=== PATIENT | female | born 1995 | race Caucasian/White ===

== ENCOUNTER → 2017-06-10 11:21 | Outpatient (CLI) | payer BC, SELFPAY ==
[2017-06-10 12:47] LABS: hCG Titer Quant., Serum < 1 mIU/mL (<9 non-preg)
== END ==
PROVIDERS: Visit Provider Obstetrics & Gynecology
DX: N91.2 Amenorrhea, unspecified (principal)
CPT/HCPCS: 36415; 84702

== ENCOUNTER → 2017-06-24 18:29 | Outpatient (CLI) | payer BC, SELFPAY ==
--- OUTSIDE RECORDS SUMMARY | 2017-06-24 19:01 | XMS RPT_ITS ---
:1995 Author Organization OHIP Care Team Providers Name Role Phone Dafne Orona Attending Unavailable Dafne Orona Attending Unavailable PROBLEMS PROBLEMS DATE TYPE CONDITION / CODE ATTENDING STATUS SOURCE 06/10/2017 Unknown N91.2 - Dafne Orona Active [facility] N91.2(ICD-10) Repository PROCEDURES PROCEDURES No Procedure Records FoundRESULTS RESULTS HCG TITER QUANT., Collected: 06/10/2017 Status: F Source: ALTMAR SERUM 11:34 AM [facility] [place] TYPE CODE TESTS RESULT OUT OF RANGE REFERENCE UNITS LAB L700.8000 Normal <9 non-preg mIU/mL HCG < 1 QUANT. Performed By: #### L700.8000 ####[facility] [id number] [place], [address] ALLERGIES ALLERGIES No Allergies Records FoundENCOUNTERS ENCOUNTERS ADMIT/DISCHARGE ACCOUNT ADMITTING ENCOUNTER LOCATION SOURCE NUMBER CLASS 06/24/2017 [id number] Ambulatory [facility] 2 [facility] ing:LABSPEC Repository 06/10/2017 [id number] Ambulatory [facility] 9 [facility] ing:WOBLAB Repository PAYERS PAYERS ENCOUNTER GUARANTOR PAYER SUBSCRIBER SOURCE 06/24/2017 Risa [id number] Insurance:[place] ENGINEERSPolic Repository [address]War: (363) Number: [phone] (VQ) [id number] Date:2017-06-24[address] [place] [id number]: 06/24/2017 Secondary NOT GIVENUNK Elaina Insurance:SELF PAY [facility] Number: Effective Repository Date:2017-06-24 06/10/2017 Risa Primary KYLE Delaney [id number] Insurance:[place] [facility] Rep[facility] 10851Mxk: 330) Number: [phone] [id number] Date:2017-06-10[address] [place] [address] [id number]: 06/10/2017 Secondary NOT GIVENUNK [place] Insurance:SELF PAY [facility] Number: Effective Repository Date:2017-06-10
[2017-06-28 10:18] LABS: HPV Reflexed? NOT INDICATED
== END ==
PROVIDERS: Visit Provider Obstetrics & Gynecology
DX: Z12.4 Encounter for screening for malignant neoplasm of cervix (principal)
CPT/HCPCS: 88175; G0145

== ENCOUNTER → 2018-08-04 17:36 | Outpatient (CLI) | payer OTHER, SELFPAY ==
[2018-08-10 16:45] LABS: HPV Reflexed? NOT INDICATED
== END ==
PROVIDERS: Referring Provider Obstetrics & Gynecology; Visit Provider Obstetrics & Gynecology
DX: Z12.4 Encounter for screening for malignant neoplasm of cervix (principal)
CPT/HCPCS: 88175; G0145

== ENCOUNTER → 2022-12-11 | Outpatient (CLI) | payer OTHER, SELFPAY ==
[2022-12-17 16:55] LABS: HPV Reflexed? NOT INDICATED
== END | disposition home or self-care (01) ==
PROVIDERS: Referring Provider Obstetrics & Gynecology; Visit Provider Obstetrics & Gynecology
DX: Z12.4 Encounter for screening for malignant neoplasm of cervix (principal)
CPT/HCPCS: 88175; G0145

== ENCOUNTER → 2024-01-04 | Outpatient (CLI) | payer OTHER, SELFPAY ==
--- NOTE | 2024-01-04 16:31 | US_ITS ---
STUDY: ULTRASOUND OF THE FEMALE PELVIS - COMPLETE REASON FOR EXAM: Female, 28 years old. dysmenorrhea LMP: 12/21/2023 TECHNIQUE: Transabdominal and Transvaginal TECHNICAL QUALITY: Adequate. COMPARISON: None. FINDINGS: The uterus is anteverted and is in a midline position. The uterus measures 9.5 x 5.6 x 3.60 cm. There is a Nabothian cyst of the cervix. The endometrium measures 15 mm in thickness, and is hyperechoic. Cannot exclude an 8 mm endometrial polyp. There is no demonstrated myometrial mass. I.U.D. - The patient does not have an I.U.D. The right ovary is visualized. The right ovary measures 4.7 x 3.1 x 2.4 cm. There is a 1.5 cm cyst. There is no visualized right adnexal mass or complex lesion. There is normal arterial and normal venous vascularity. The left ovary is visualized. The left ovary measures 3.3 x 3.0 x 2.5 cm. There is a 1.9 cm cyst. There is no visualized left adnexal mass or complex lesion. There is normal arterial and normal venous vascularity. There is no fluid in the cul-de-sac. The pre void volume of the bladder was 135 ml. Polycystic ovary disease: No. US/Pelvic w/ Transvaginal IMPRESSION: Thickened and abnormal endometrial echoes. Cannot exclude endometrial polyp. Electronically Signed: Poli Arteaga MD at 20:18 EDT ,
== END | disposition home or self-care (01) ==
LOC: US 16:30
PROVIDERS: Referring Provider Obstetrics & Gynecology; Visit Provider Obstetrics & Gynecology
DX: N94.6 Dysmenorrhea, unspecified (principal)
CPT/HCPCS: 76830; 76856

== ENCOUNTER → 2024-01-12 | Outpatient (CLI) | payer OTHER, SELFPAY | END | disposition home or self-care (01) | LOC: WOBLAB 15:57 | PROVIDERS: Referring Provider Obstetrics & Gynecology; Visit Provider Obstetrics & Gynecology | DX: N94.6 Dysmenorrhea, unspecified (principal) | CPT/HCPCS: 84443 ==

== ENCOUNTER → 2024-01-20 | Outpatient (CLI) | payer OTHER, SELFPAY ==
--- NOTE | 2024-01-20 11:49 | RAD_ITS ---
INDICATION: infertility EXAMINATION/TECHNIQUE: Routine hysterosalpingography was performed. Total Fluoroscopic Time: 39 seconds AND number of Fluoroscopic Images: 2 Radiation dosage index: 11.88 mGy. COMPARISON: No relevant prior comparison study available FINDINGS: The uterine cavity contour is unremarkable. There are no filling defects or abnormalities. There is filling of the left fallopian tube with free flow. There is faint opacification of the right fallopian tube although no evidence of. RAD/Salpingogram IMPRESSION: Patency with spill of the left fallopian tube. Electronically Signed: Marcelo Collier MD at 12:50 EDT ,
--- NOTE | 2024-01-20 16:55 | PCM.OP.PRO2 ---
Problems Associated Problem List Diagnoses (1) Infertility: Non-invasive Procedure Procedure Information Procedure Performed:: hysterosalpingogram Surgeon/Practitioner: Kristyn Gustafson Date of Procedure: 01/20/24 Pre-Procedure Diagnosis: infertility Post-Procedure Diagnosis: infertility Special Medications: none Fluids Replaced: non Description of procedure: Preop diagnosis: Infertility Operative details: Patient was taken to the x-ray room and was placed on the x-ray table and was in the dorsal lithotomy position. Speculum was placed in the vagina and the cervix prepped with Betadine and the HSG catheter was easily introduced into the uterus and speculum removed. Radiologist was brought in and while pushing radiopaque dye into the uterus via the HSG catheter the radiologist took multiple images and views and confirmed left tubal patency but not right. No gross uterine filling defects or abnormalities were seen. All instruments removed from the vagina and the uterus without complication. Patient tolerated the procedure well. Procedure findings: abnormal HSG Entertainment Production Professional vegetable farm worker: No Complications Complications: No Multi Select Codes Urinary/Genital Urinary/Genital CPT Codes: 31994 HSG/SIS
== END | disposition home or self-care (01) ==
LOC: RAD 11:48
PROVIDERS: Referring Provider Obstetrics & Gynecology; Visit Provider Obstetrics & Gynecology
DX: N97.0 Female infertility associated with anovulation (principal)
CPT/HCPCS: 58340; 74740

== ENCOUNTER 2024-05-10 05:45 | Day surgery (SDC) | payer OTHER, SELFPAY ==
[2024-05-06 14:20] LABS: Hematocrit 42.7 % (37-47); Hemoglobin 14.1 g/dL (12.0-15.0); Mean Corpuscular Hgb 29.1 pg (27.0-32.0); Mean Platelet Vol. 9.7 fl (6.2-12.0); Platelet Count 248 K/mm3 (150-450); RBC Distribution Width CV 11.9 % (11.6-14.6); RBC Distribution Width SD 38.3 fl (35.1-43.9); Red Blood Count 4.85 M/mm3 (4.2-5.4); White Blood Count 8.2 K/mm3 (4.4-11.0)
--- NOTE | 2024-05-09 17:26 | PCM.HP.BLA ---
History and Physical Date of Admission: 05/10/24 ital Signs 03/03/2414:52 05/06/2511:59 Height 5 ft 7 in 5 ft 7 in Weight: 140 lb 134 lb 8 oz BMI 21.9 21.0 BP 126/84 H 129/85 H Intake Visit Reasons: D&C Polypectomy, diag. lap, john Pipe Stem Sawyer Required: No Is patient in pain?: No Feel stressed/tense/nervous/anxious/difficulty sleeping: not at all Allergies No Known Allergies Allergy (Verified 05/06/24 13:01) Medications ?Medication ?Instructions ?Recorded ?Confirmed ?Type NK 09/03/20 05/06/24 History Post menopausal: No Patient : No : No PFSH Medical History Wears contact lenses Non-smoker Surgical History History of wisdom tooth extraction Family History Grandmother CVA (cerebral vascular accident) Heart disease Cancer ovarian or uterine - unsure what it is Social History household members: spouse number of children: 0 current occupational status: employed 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 john clarke Details: RISA ALVAREZ is a 28 year old who presents for infertility and dysmenorrhea. she has significant crmaping with menses, and some heavier menses some months, has bene trying to conceive over a year, has good egg quality and suppply and normal SA. 8 mm polyp seen on US. History 0 Elective abortions Hx Para Spontaneous abortions Hx # Term Pregnancies Ectopic pregnancies Hx # Pregnancies Multiple births # of living children ROS Const Constitutional: Denies fatigue, fever(s), headache(s), increased appetite, poor appetite, weight gain or weight loss GI GI: Reports as per HPI; Denies abdominal pain, constipation, nausea or vomiting : Reports as per HPI; Denies difficulty voiding, dysuria, hematuria, pelvic pain, urinary frequency, urinary incontinence, urinary hesitancy, urinary urgency, vaginal discharge, vaginal dryness, vaginal odor, vaginal pruritus or other Exam Const General: cooperative, healthy appearing, comfortable, no acute distress and well developed Orientation: alert HENMT Head: normal to inspection and normocephalic Ears: hearing grossly normal bilaterally and external ears normal Nose: external nose normal and nares normal Face and sinus: normal facial exam Neck Neck: normal visual inspection, no lymphadenopathy and trachea midline Thyroid: thyroid normal Resp Effort & Inspection: normal respiratory effort Musc Other: gross motor intact no deficits, full bilateral strength Skin General: no rashes or lesions noted Neuro Motor: muscle tone normal throughout Coding Level of Care Code No Charge Diagnoses Endometrial polyp N84.0 Infertility associated with anovulation N97.0 Dysmenorrhea N94.6 Infertility Assessment and Plan Assessment and Plan (1) Endometrial polyp: Status: Acute Comment: plan d and c hysterosocpy polypectomy diagnostic laparoscopy and chromotubation (2) Infertility associated with anovulation: Status: Acute (3) Dysmenorrhea: Status: Acute Comment: ordered full evaluation (4) Infertility: Status: Acute Comment: OAR good egg supply and quality, nl SA Plan After discussing the patient's diagnosis and treatment plan options, patient wishes to proceed with surgical management. I have discussed with the patient the risks, benefits, and alternatives of the procedure which include but are not limited to risks of anesthesia, bleeding, infection, possible damage to bowel, bladder, or surrounding vasculature which could lead to additional surgery to evaluate any complications. Patient agrees to procedure and wishes to proceed. ACOG/uptodate references given for additional information regarding procedure.
[2024-05-10] VITALS (11 sets, daily range): BP systolic 100–130; BP diastolic 66–86; PULSE 58–106; RESP 16–18; TEMP 36.1–37.1; O2SAT 100; BMI 20.3
[2024-05-10 06:21] LABS: Internal QC Validated? YES +Cl - CLEAR BKGD; Pregnancy, Urine Negative Negative
--- NOTE | 2024-05-10 06:27 | PRE.ANES_ITS ---
ASA Classification* ASA Classification ASA Classification: 1 Assessment & Plan Anesthesia* Anesthesia Assessment Anesthesia Assessment: Discussed sedation and/or anesthesia options, risks, benefits, and alternatives with patient/parents/legal guardian/POA. Questions invited. The patient/parents/legal guardian/POA seems to understand and agrees to proceed with anesthesia plan. Reviewed the physical assessment, medical history, allergy history and patient home medications list prior to surgery/procedure/anesthetic and documented any changes. Performed airway and anesthesia risk assessments. Anesthesia Type Anesthesia Type: General History Source History Obtained from:: Patient and Chart Anesthesia Focused Assessment* Temperature: 98.7 F Pulse Rate: 106 Blood Pressure: 130/86 Respiratory Rate: 16 Pulse Ox: 100 Oxygen Delivery Method: Room Air Airway Assessment Mouth opens: >3 cm Mallampati Score: II Teeth Condition: Intact Neck Range of motion (ROM): Full ROM Focused Labs Anesthesia Preop lab: CBC WBC 8.2 K/mm3 (4.4-11.0) 05/06/24 13:16 05/06/24 RBC 4.85 M/mm3 (4.2-5.4) 05/06/24 13:16 05/06/24 Hgb 14.1 g/dL (12.0-15.0) 05/06/24 13:16 05/06/24 Hct 42.7 % (37-47) 05/06/24 13:16 05/06/24 Plt Count 248 K/mm3 (150-450) 05/06/24 13:16 05/06/24 CHEMISTRY TSH 1.350 uIU/mL (0.358-3.740) 01/12/24 16:03 12/22 05/16 COAG HCG, Quant < 1 mIU/mL (<9 non-preg) 06/10/17 11:34 Urine Test Negative Negative 05/10/24 06:01 05/10/24 Pre-Assessment Diagnosis/Proposed Procedure Planned Operative Procedure(s): DIAGNOSTIC LAP, HYSTERSCOPY, CHROMOTUBATION, D&C, POLYPECTOMY Anesthesia History Anesthesia History - veterinarian poultry: Anesthesia History - veterinarian poultry Hx Hospitalization No 05/05/24 10:30 Any Problems With Anesthesia No 05/05/24 10:30 Cholinesterase deficiency No 05/05/24 10:30 You/Your Family Experience No 05/05/24 10:30 fever (hyperthermia) with Relationship Recent Exposure to Contagious No 05/10/24 06:08 Disease Does patient have nerve No 05/05/24 10:30 stimulator Patient instructed to have device shut off --Does patient have Pacemaker No 05/10/24 06:08 or ICD? When Was Last Pacemaker Check QUESTION #4 FULL TEXT: You/Your Family Experience fever (hyperthermia) with Anesthesia Last Oral Intake Last Oral intake: Last Oral Intake NPO since 18:00 05/10/24 06:08 Meds taken in AM with sips of water? Meds patient instructed to take am of surgery PONV PONV - veterinarian poultry: PONV - veterinarian poultry Female Yes 05/05/24 10:30 HX of Motion Sickness No 05/05/24 10:30 HX of N/V After Surgery No 05/05/24 10:30 Non-Smoker Yes 05/05/24 10:30 Duration of Surgery greater No 05/05/24 10:30 than 60 minutes Number of Risk Factors 2 05/05/24 10:30 PONV Score Moderate Risk 05/05/24 10:30 Height & Weight Height & Weight: Anesthesia: Height & Weight Height 5 ft 7 in 05/10/24 06:08 Weight: 58.967 kg 05/10/24 06:08 Body Mass Index (BMI) 20.3 05/10/24 06:08 Respiratory Assessment Respiratory Assessment - veterinarian poultry: Respiratory Tract Infection Hx - veterinarian poultry Hx Respiratory Tract Infection No 05/05/24 10:30 STOP Sleep Apnea STOP Sleep Apnea - veterinarian poultry: STOP Sleep Apnea - veterinarian poultry Hx Hypertension No 05/05/24 10:30 Hx Sleep Apnea No 05/05/24 10:30 CPAP BIPAP Do you snore loudly (louder No 05/05/24 10:30 than talking or can be heard Do you often feel tired/ No 05/05/24 10:30 fatigued/ sleepy during daytime? Has anyone observed you stop No 05/05/24 10:30 breathing during sleep? STOP Results Negative 05/05/24 10:30 QUESTION #5 FULL TEXT : Do you snore loudly (louder than talking or can be heard through closed doors)? 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 Specify any problems Hx of Preganancy in last 3 N/A 05/05/24 10:30 Months Nurse Filling Out Transfusion NBUCHER 05/05/24 10:30 & Questions: Date: 05/05/24 05/05/24 10:30 Time: 10:31 05/05/24 10:30 Patient unable to answer at this time (ie. confused, unrespo /Reproduction History /Reproductive History - veterinarian poultry: /Reproductive Hx- veterinarian poultry Hx Now No 05/05/24 10:30 Gestational Age (in weeks): EDC: Hx Hx Para Hx Section SAB No 05/06/24 13:01 Active Medications Active Medications: Current Medications Generic Name Dose Route Start Last Admin Trade Name Freq PRN Reason Stop Dose Admin Cefotetan Disodium 2 gm/ 100 mls @ 200 mls/hr 05/10/24 07:30 Sodium Chloride IV 05/10/24 07:59 PREOP ONE PFSH Medical History Wears contact lenses Non-smoker Home Medications ?Medication ?Instructions ?Recorded ?Last Taken ?Type NK 09/03/20 Unknown History Allergy/AdvReac Type Severity Reaction Status Date / Time No Known Allergies Allergy Verified 05/10/24 06:08 Family History Grandmother CVA (cerebral vascular accident) Heart disease Cancer ovarian or uterine - unsure what it is Surgical History History of wisdom tooth extraction Social History household members: spouse number of children: 0 current occupational status: employed 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
[2024-05-10] MEDS: 0.9% Normal Saline (1000mL) 1,000 ML 15 ML IV (06:34)
--- NOTE | 2024-05-10 07:30 | EMB_PTH ---
PATIENT: RISA ALVAREZ LOC: [facility] U#:[id number] AGE/SX: 28/F ROOM: RE05/10/[address]: Dr. Karrie Bae MD : 1995 BED: DIS: 05/10/2024 SPEC #: [id number] RECD: 05/10/24 10:41 STATUS: ZAHIDA RETristian #: [id number] FELIPE: 05/10/24 07:[address]: Karrie Bae DEPT: SURGICAL PATHOLOGY RECD BY: Sophie Kovacs ENTERED: 05/10/24 12:04 SP TYPE: ENDOM BX/C LYLE DR: No Primary Care Phys Tissues: Endometrium, NOS Procedures: Surgery Specimen Level IV HEADER OPERATION: Diagnostic laparoscopy, D&C, hysteroscopy PRE-OP DIAGNOSIS: Endometrial polyp, infertility, dysmenorrhea TISSUE SUBMITTED: Endometrial curettings and polyp MICROSCOPIC DIAGNOSIS Endometrial curettings and polyp: Disordered proliferative endometrium. Polypoid fragments of benign endocervical mucosa may represent fragments of benign endocervical polyp. 05/11/2024 MICROSCOPIC DESCRIPTION Slides are reviewed. GROSS DESCRIPTION Received in fixative is one container labeled with the patient's name and designated Endometrial curettings and polyp. The specimen consists of fragments of blood clot and possible [place] tissue aggregating to approximately 2cc. Submitted in a total of two cassettes. 05/10/2024 TC:5 CPT:98811
--- NOTE | 2024-05-10 07:42 | OP.PCM_ITS ---
Problems Associated Problem List Diagnoses (1) Dysmenorrhea: (2) Infertility: (3) Endometrial polyp: Multi Select Codes Urinary/Genital Urinary/Genital CPT Codes: 54884 Chromotubation, 01681 Hysteroscopy,EMC, Polypectomy and 69806 Laproscopic ablation endometriosis Operative Report (Standard) Operative Information Date of Procedure: 05/10/24 Pre-Operative Diagnosis: see problem list Post-Operative Diagnosis: same plus stage II endometriosis Surgery/Procedure Performed: dilation and curettage hysteroscopy polypectomy laparoscopic ablation of endometriosis chromotubation bioinformatics software engineer: Yes Geospatial Analyst: Pamela Larose Tasks completed by events administrative assistant: Opening & closing, Trocar and Retracting Type of Anesthesia: General RN Documented Start/Stop Times: Operation Date: 05/10/24 07:30 Case Time Into Pre-Op 05/10/24 05:52 Out of Pre-Op 05/10/24 07:27 Anesthesia Start 05/10/24 07:30 Into Room 05/10/24 07:30 Procedure Start 05/10/24 07:54 Procedure End 05/10/24 09:00 Anesthesia End 05/10/24 09:05 Out of Room 05/10/24 09:05 Into Recovery 05/10/24 09:07 Into Phase II Recovery 05/10/24 10:03 Out of Recovery 05/10/24 10:03 Out of Phase II 05/10/24 11:10 Procedure Start Time: 07:54 Procedure Stop Time: 09:00 Select all DRAINS/GRAFTS/IMPLANTS that apply: None (muller drained bladder at beginning) Estimated Blood Loss: 25 Specimen collected: Yes Description of specimen(s) removed: emc polyp Description of surgery: Patient was taken the operating room and placed under general anesthesia was prepped and draped in the normal sterile fashion in the dorsolithotomy position SCDs were on preoperatively. Cervix was progressively dilated to allow passage of a 3 mm hysteroscope uterine lining was well-visualized and a small polyp was noted on the right fundal anterior portion a curettage was performed and then hysteroscopy confirmed complete removal of the polyp all tissue sent to pathology for analysis. Uterine manipulator placed inside the uterus and then attention paid to the abdominal portion of the procedure. Umbilicus injected with quarter percent Marcaine and towel clamps used to elevate the umbilicus intraumbilical 5 mm incision made various needle entered into the abdomen confirmed the intra-abdominal with a low opening pressure less than 5 mmHg. Abdomen insufflated with CO2 gas 5 mm Optiview port placed under direct visualization without complication. Right left lower quadrant 5 mm ports also placed without complication. Pelvis and cul-de-sac well-visualized and stage II endometriosis noted with endometriosis implants in the anterior bilateral cul-de-sac and in the posterior cul-de-sac along the left uterine corpus and a Masters window was noted in the left uterosacral ligament to the left ovarian fossa and bilateral ovaries were covered with endometriosis implants with hemosiderin changes bilateral tubes were free of disease with no scarring and no adhesions or scarring were seen throughout the pelvis or the upper abdomen. No bowel adhesions were noted. All areas of endometriosis implants were cauterized with monopolar cautery and suction irrigated and Heema blast placed over the areas. Ovaries inspected and noted to be within normal limits after the endometriosis lesions were ablated. Bilateral ovarian fossa's were noted to contain significant endometriosis implants and disease which were cauterized and removed. Chromotubation was then performed and bilateral uterine spillage was seen with no significant dilation of either tube. All instruments were removed from the vagina and abdomen and port sites were closed with 4-0 Monocryl after the abdomen was desufflated of gas. Patient was awoken and taken recovery in stable condition Surgical Findings: right anterior endometrial polyp stage II endometriosis implants anterior and posterior cul-de-sac bilateral ovarian fossa bilateral ovaries and left uterosacral to pelvic sidewall Masters window Complications Complications: No
[2024-05-10] MEDS: Cefotetan 2 GM in 0.9% Normal Saline (100mL MB+) 100 ML IV (07:43)
[2024-05-10] MEDS: Methylene Blue 1% 100 MG/10 ML VIAL (08:01)
[2024-05-10] MEDS: Bupivacaine 0.25% 30 ML Vial (08:15)
--- NOTE | 2024-05-10 09:12 | PCM.POST.ANE ---
Anesthesia: Postop Eval I Current Vital Signs Temperature: 97.4 F Pulse Rate: 100 Blood Pressure: 113/70 Respiratory Rate: 18 Pulse Ox: 100 Oxygen Delivery Method: Room Air Assessment Airway patent: Yes Spontaneous unlabored respirations: Yes Mental status: Awake and Calm nausea: No Vomiting: No Anesthesia Complication: No Fluid Hydration Crystalloid volume administer (ml): 1,000 Total IV fluid infused: 1,000 Progress Note Anesthesia document: Postop Eval 1 completed: Yes
--- NOTE | 2024-05-10 09:19 | DCINST_ITS ---
Discharge Instructions Diet Discharge Diet: No restrictions DC O2, CPAP, BIPAP needs Home O2 Discharge instructions: No Dressing / Incision Discharge Activity: Return to Normal Activity, May Not Drive ( while taking narcotic pain meds, when pain free), May Shower and May Take a Tub Bath (in 7 days) May resume sexual activity in: 1 week Weight Bearing Status: Full weight bearing Dressing / Incision Call your doctor if your incision/area has: Continuous Slow Oozing, Sudden Increased Bleeding, Increased Pain/ Swelling, Increased Redness and Foul Smelling Discharge Call your doctor if you observe: Fever of 101 or Higher, Using more than 1 pad per hour, Shortness of breath, Chest pain and Uncontrolled pain Suture Line Care: Avoid Pulling/Pushing and Avoid Pinching/Bending Remove Dressing in: 1 week (if present) Cleanse incision/area with: Soap & Water and Keep Dressing Clean & Dry Follow Up Care When: Call to make an appointment with your doctor for a fu/incision check in 1- 2 weeks. Test Results: Test results from this visit will be discussed in further detail at your follow- up appointment, if applicable. Discharge Plan Admission Attending Provider: Karrie Bae Primary Care Provider: Care Physician,No Primary Instructions Print Language: Thai Discharge Orders/Prescriptions Prescriptions: New oxycodone-acetaminophen [Percocet] 5-325 mg tablet 1 tab PO Q6H 7 Days Qty: 10 0RF naproxen 500 mg tablet 500 mg PO BID PRN PRN (Reason: Pain) Qty: 30 1RF Referrals / Follow Up: Care Physician,No Primary [Primary Care Provider] - Disposition Disposition (needs filled in before D/C Order can be placed): Home, Self Care
[2024-05-10] MEDS: HYDROcodone Bitartrate/Apap 5/325 Tablet PO (10:34)
--- NOTE | 2024-05-10 14:16 | POSTOPAN2_ITS ---
Anesthesia Postop Eval I Sum Postop Eval Completion status Anesthesia document: Postop Eval 1 completed: Yes Anesthesia Postop Eval I Summary Anesthesia Postop Eval I Summary: Anesthesia Postop Eval I: Assessment Summary Airway patent Yes 05/10/24 09:13 OPTICIAN APPRENTICE.[email or web address] Spontaneous unlabored Yes 05/10/24 09:13 OPTICIAN APPRENTICE.RWOO respirations Mental status Awake,Calm 05/10/24 09:13 OPTICIAN APPRENTICE.RWOO nausea No 05/10/24 09:13 OPTICIAN APPRENTICE.RWOO Vomiting No 05/10/24 09:13 OPTICIAN APPRENTICE.RWOO Anesthesia Postop Eval I: Fluid Summary Crystalloid volume administer 1,000 05/10/24 09:13 OPTICIAN APPRENTICE.RWOO (ml) Colloids volume administered ( ml) Blood Product volume administered (ml) Total IV fluid infused 1,000 05/10/24 09:13 OPTICIAN APPRENTICE.RWOO Anesthesia Postop Eval I: Summary Notes Anesthesia Complication No 05/10/24 09:13 OPTICIAN APPRENTICE.RWOO Anesthesia Complication Comment: Post-operative progress note Anesthesia: Postop Eval II Evaluation Mental status: Awake and Calm Pain Level: 1 nausea: No Vomiting: No Complications Anesthesia Complication: No
--- NOTE | 2024-05-10 14:16 | PCM.POSTANE2 ---
Anesthesia Postop Eval I Sum Postop Eval Completion status Anesthesia document: Postop Eval 1 completed: Yes Anesthesia Postop Eval I Summary Anesthesia Postop Eval I Summary: Anesthesia Postop Eval I: Assessment Summary Airway patent Yes 05/10/24 09:13 [employer][email or web address] Spontaneous unlabored Yes 05/10/24 09:13 [employer][email or web address] respirations Mental status Awake,Calm 05/10/24 09:13 [employer][email or web address] nausea No 05/10/24 09:13 [employer][email or web address] Vomiting No 05/10/24 09:13 [employer][email or web address] Anesthesia Postop Eval I: Fluid Summary Crystalloid volume administer 1,000 05/10/24 09:13 [employer]RWOO (ml) Colloids volume administered ( ml) Blood Product volume administered (ml) Total IV fluid infused 1,000 05/10/24 09:13 [employer][email or web address] Anesthesia Postop Eval I: Summary Notes Anesthesia Complication No 05/10/24 09:13 [employer]RWOO Anesthesia Complication Comment: Post-operative progress note Anesthesia: Postop Eval II Evaluation Mental status: Awake and Calm Pain Level: 1 nausea: No Vomiting: No Complications Anesthesia Complication: No
== END 2024-05-10 11:11 | disposition home or self-care (01) ==
LOC: SDC 05:45 → AC 05:46
PROVIDERS: Referring Provider Obstetrics & Gynecology; Visit Provider Obstetrics & Gynecology
PROC: (CPT 49320; principal; 2024-05-10 07:15)
DX: N84.0 Polyp of corpus uteri (principal); N94.6 Dysmenorrhea, unspecified; N97.0 Female infertility associated with anovulation
CPT/HCPCS: 58558; 58662; 58350; 00952; 36415; 81025; 85027; 86850; 86900; 86901; 88305; A4216; J2405